=== PATIENT | female | born 1980 | race Caucasian/White ===

== ENCOUNTER 2018-11-23 13:21 | Emergency (ER) | payer MEDICAID ==
[~2018-11-23] VITALS: Ht 149.9 cm; Wt 56.8 kg
[2018-11-23 13:29] VITALS: BP 127/81
== END 2018-11-23 20:40 | disposition left against medical advice (07) ==
LOC: ER 13:23
DX: R05 Cough (principal); R07.89 Other chest pain; Z53.21 Procedure and treatment not carried out due to patient leaving prior to being seen by health care provider